=== PATIENT | male | born 1935 | race Caucasian/White ===

== ENCOUNTER 2017-12-20 11:27 | Inpatient (IN) | payer MEDICARE ==
[2017-12-20 12:04] LABS: #Basophils 0.1 thou/uL (0.0-0.2); #Eosinphils 0.1 thou/uL (0.0-0.7); #Lymphocytes 0.9 thou/uL (1.20-3.40); #Monocytes 0.9 thou/uL (0.11-0.59); #Neutrophils 7.1 thou/uL (1.40-6.50); %Basophils 0.6 % (0.0-1.0); %Eosinophils 0.7 % (0.0-10.0); %Lymphocytes 10.2 % (21.0-51.0); %Neutrophils 78.5 % (42.0-75.0); Hemoglobin 16.2 g/dL (14.0-18.0); Mean Corpuscular HGB CONC 33.7 g/dL (32.0-36.0); Mean Corpuscular Hemoglobin 30.8 pg (27.0-31.0); Mean Corpuscular Volume 91.6 fL (78.0-98.0); Mean Platelet Volume 8.7 fL (7.4-10.4); Platelet Count 155 thou/uL (130-400); RBC Distribution Width 13.3 % (11.5-14.5); Red Blood Cell (RBC) Count 5.27 mill/uL (4.70-6.10)
--- NOTE | 2017-12-20 12:11 | RAD ---
PORTABLE CHEST 1 VIEW: Date: 12/20/17 Time: 1115 hours HISTORY: Dyspnea. FINDINGS: Comparison made with exam of 02/13/14. The heart size is borderline. The aorta is tortuous. The lungs are well expanded without focal areas of consolidation, pneumothorax, ankit pulmonary edema, or pleural effusions. There are degenerative c hanges in the shoulder joints. IMPRESSION: No radiographic evidence of acute cardiopulmonary process. POS: [facility]
[2017-12-20 12:25] LABS: ALT (SGPT) 30 U/L (8-55); AST (SGOT) 28 U/L (5-34); Alkaline Phosphatase 97 U/L (40-150); Anion Gap 12 mmol/L (10-20); BUN (Urea Nitrogen) 21 mg/dL (8.4-25.7); Bilirubin, Total 0.9 mg/dL (0.2-1.2); CK (CPK) 302 U/L (30-200); Calc. Creatinine Clearance 0 mL/min (70-130); Calcium 9.1 mg/dL (7.8-10.44); Carbon Dioxide 19 mmol/L (23-31); Chloride 113 mmol/L (98-107); Estimated GFR-MDRD 51; Globulin 2.7 g/dL (2.4-3.5); Glucose 111 mg/dL (83-110); Magnesium 2.2 mg/dL (1.6-2.6); Protein, Total 6.7 g/dL (5.8-8.1); Sodium 140 mmol/L (136-145)
[2017-12-20 12:27] LABS: Troponin I 0.012 ng/mL (< 0.028)
[2017-12-20 12:29] LABS: CKMB 7.9 ng/mL (0-6.6)
[2017-12-20 12:51] LABS: Prothrombin Time 13.4 SEC (12.0-14.7)
[2017-12-20 12:53] LABS: D-Dimer Test 0.9 *mcg/mL (0.27-0.43)
[2017-12-20] MEDS ORDERED: Senokot 8.6 MG TAB PO PRN (16:58)
[2017-12-20] MEDS ORDERED: hydrALAZINE 20 MG/ML VIAL SLOW IVP PRN (16:58)
[2017-12-20] MEDS ORDERED: Diabetic Tussin 200 MG/10 ML UDCUP PO PRN (16:58)
[2017-12-20] MEDS ORDERED: Mag-Al 1200 mg/1200 mg/30 ML UDCUP PO PRN (16:58)
[2017-12-20] MEDS ORDERED: cloNIDine 0.1 MG TAB PO PRN (16:58)
[2017-12-20] MEDS ORDERED: traMADol HCl 50 MG TAB PO PRN (16:58)
[2017-12-20] MEDS ORDERED: Calcium Carbonate 500 MG ChewTAB PO PRN (16:58)
[2017-12-20] MEDS ORDERED: Benzonatate 100 MG CAP PO PRN (16:58)
[2017-12-20] MEDS ORDERED: Ondansetron HCl/PF 4 MG/2 ML Vial IVP PRN (16:58)
[2017-12-20] MEDS ORDERED: Nitroglycerin 0.4 MG TAB (25 Tab Bottle) SL PRN (16:58)
[2017-12-20] MEDS ORDERED: Loratadine 10 MG TAB PO PRN (16:58)
[2017-12-20] MEDS ORDERED: Bisacodyl 5 MG TAB PO PRN (16:58)
[2017-12-20] MEDS ORDERED: Acetaminophen 325 MG TAB PO PRN (16:58)
[2017-12-20] MEDS ORDERED: Enoxaparin Sodium 100 MG/ML SYRINGE ONE (18:19)
[2017-12-20 18:43] LABS: Troponin I 0.041 ng/mL (< 0.028)
--- NOTE | 2017-12-20 19:16 | ULT ---
CAROTID DOPPLER: 12/20/17 Ultrasound doppler study is performed on the extracranial carotid arteries. Color doppler with spectr al analysis of velocity recordings obtained. INDICATIONS: Syncope. Ultrasound images show mild echogenic plaque in both bulbs and proximal ICAs. Velocity recordings are normal bilaterally. Vertebral arteries show antegrade flow. IMPRESSION: 1. Mild echogenic plaques bilaterally. 2. No evidence of significant stenosis. POS: [facility]
--- NOTE | 2017-12-20 20:07 | HP ---
DATE OF ADMISSION: 12/20/2017 PRIMARY CARE PHYSICIAN: Dr. Kwok at [facility]. CHIEF COMPLAINT: Dizziness and near passing out. HISTORY OF PRESENT ILLNESS: Mr. Luna is a very pleasant 82-year-old male who is actually very healt hy, who presented to the emergency room with above-mentioned complaint. He has past medical history of hypertension and dyslipidemia. History is mainly obtained by the patient himself and electronic m edical records have been reviewed. Case has been discussed with admitting ER physician. Mr. Luna reports that he was at [employer] function this morning and suddenly he started to feel somewhat dizzy. He sat down; however, the dizziness did not go away. He describes it as a sensatio n when his ears are full of wax and they feel full. He denies any fever or chills. He denies any pa in in the ear or any ear discharge. He denies any recent illnesses. With these symptoms, he did not have any chest discomfort, tightness, heaviness. He denies any shortness of breath, diaphoresis, ar m or jaw pain or claudication. When the symptoms did not get any better, he decided to present to [facility] emergency room. Reportedly, his oxygen saturations were 85% on room air and initial BP was 95/50. This was for the EMS personnel. Upon presentation to the emergency room, his blood pressure was 127 /87, pulse of 99, saturating 92% on 2 liters oxygen. Initial workup included a 12-lead EKG, which wa s read as accelerated junctional rhythm. EKG was repeated, which showed prolonged NH interval and fi rst-degree AV block. Chest x-ray was unremarkable. His blood work initially had a troponin of 0.012 , which went up to 0.050. His CK-MB is elevated to 7.9, but his creatinine kinase is also mildly dominik vated to 302. His creatinine is 1.34 with unknown baseline. He had neutrophilia without any elevati on of the WBC count. His D-dimer is mildly elevated to 0.90. He was given aspirin in the emergency room and is now being admitted for further workup for near syncope, possible "unstable angina" as per the ER physician. With the bump in the troponin, he has also been given a dose of Lovenox. PAST MEDICAL HISTORY: 1. History of lumbar spinal stenosis, status post surgery. 2. Hypertension. 3. Dyslipidemia. 4. History of patellar fracture. 5. History of quadriceps tendon rupture with repair. PAST SURGICAL HISTORY: 1. Lumbar laminectomy. 2. Quadriceps tendon repair. CURRENT MEDICATIONS: Unknown, the patient does not remember, but he does say that he takes half of t he cholesterol medication and the blood pressure medication. ALLERGIES: No known medication allergies. FAMILY HISTORY: Multiple family members with coronary artery disease including both of his parents a nd multiple of his siblings. He also report that cancer runs in his brother and sisters, but he does not recall what type. SOCIAL HISTORY: He is a and lives in [place]. He is very independent. His 2 daughters julianne e in [place]. Ms. Restrepo would be his spokesperson if he is not able to make decisions. No history of drug, tobacco or alcohol abuse. REVIEW OF SYSTEMS: A 12-point review of systems is negative except for those mentioned in the histor y and physical. Constitutional: Weight loss or gain, ability to conduct usual activities. Skin: R carmen, itching. Eyes: Double vision, pain. ENT/Mouth: Nose bleeding, neck stiffness, pain, tenderne ss. Cardiovascular: Palpitations, dyspnea on exertion, orthopnea. Respiratory: Shortness of breat h, wheezing, cough, hemoptysis, fever or night sweats. Gastrointestinal: Poor appetite, abdominal p ain, heartburn, nausea, vomiting, constipation, or diarrhea. Genitourinary: Urgency, frequency, dys uria, nocturia. Musculoskeletal: Pain, swelling. Neurologic/Psychiatric: Anxiety, depression. Al lergy/Immunologic: Skin rash, bleeding tendency. LABORATORY DATA: CBC shows neutrophils at 78%, otherwise unremarkable. D-dimer 0.90. Serum roundhouse supervisor ry showed creatinine of 1.34, bicarbonate 19, chloride 113, blood sugar 111, creatinine kinase 302. CK-MB 7.9. Initial troponin 0.012, then repeat troponin 0.050, and then 0.041. BNP is normal. Ches t x-ray by my review has no evidence to suggest any pulmonary vascular congestion, edema or infiltrat e. Borderline heart size is noticed. Twelve-lead EKG by my review shows prolonged NH interval and f irst-degree AV block. IMPRESSION AND PLAN: 1. Near syncope. Possible etiology can be dehydration as evidenced by his acute renal insufficiency and mild rhabdomyolysis; however, cardiac pathology cannot be ruled out. He had a cardiac catheteri zation done by Dr. Brandon in 2012, which was essentially unremarkable. At this time, with up trend ing troponin, we will give him full dose aspirin and he has also received a dose of Lovenox in the ER at 1 mg/kg. He will be admitted to telemetry and we will obtain an echocardiogram and consult Cardi ology in the morning especially with a possible accelerated junctional rhythm upon presentation. The possibility of pulmonary embolism is less likely even though his D-dimer is elevated. He is not hyp oxic and quite stable and asymptomatic at the time of my examination. We will also obtain a carotid Doppler ultrasound to rule out posterior cerebral circulation issues. 2. Hypertension. Resume home medications once confirmed and meanwhile add p.r.n. antihypertensives. 3. Dyslipidemia. Resume home medications when confirmed. 4. Code status: FULL CODE, discussed with the patient. 5. Deep venous thrombosis and gastrointestinal prophylaxis. DISPOSITION: Mr. Luna is being admitted for near syncope, elevated cardiac enzymes and arrhythmia. Further management will depend upon his clinical course. Estimated length of stay at this time is a t least 2-3 midnights.
[2017-12-20] MEDS: Sodium Chloride 0.9% 1,000 ML IV SCH (21:18)
[2017-12-20] MEDS: Famotidine 20 MG TAB PO SCH (21:18)
[2017-12-20 21:38] LABS: Troponin I 0.041 ng/mL (< 0.028)
[2017-12-20 22:14] VITALS: BMI 28.5
[2017-12-21] MEDS ORDERED: Atropine Sulfate 1 mg/1 ml Vial IVP PRN (01:19)
--- NOTE | 2017-12-21 01:23 | PDOC.EVN ---
Event Note - Event Note Event Note: paged by rn pt had sinus pauses and bradycardia in the 40's while sleeping when awake findings disappear, we will place order for atropine to be kept at bedside , to be given only for symptomatic bradycardia and call
[2017-12-21 05:58] LABS: #Basophils 0.1 thou/uL (0.0-0.2); #Eosinphils 0.2 thou/uL (0.0-0.7); #Lymphocytes 1.2 thou/uL (1.20-3.40); #Monocytes 0.8 thou/uL (0.11-0.59); #Neutrophils 3.6 thou/uL (1.40-6.50); %Basophils 1.2 % (0.0-1.0); %Eosinophils 3.9 % (0.0-10.0); %Monocytes 12.9 % (0.0-10.0); Hemoglobin 14.6 g/dL (14.0-18.0); Mean Corpuscular HGB CONC 33.2 g/dL (32.0-36.0); Mean Corpuscular Hemoglobin 30.7 pg (27.0-31.0); Mean Corpuscular Volume 92.3 fL (78.0-98.0); Mean Platelet Volume 8.7 fL (7.4-10.4); Platelet Count 158 thou/uL (130-400); RBC Distribution Width 13.3 % (11.5-14.5); Red Blood Cell (RBC) Count 4.77 mill/uL (4.70-6.10); White Blood Cell (WBC) Count 5.8 thou/uL (4.8-10.8)
[2017-12-21 06:02] LABS: Anion Gap 8 mmol/L (10-20); BUN (Urea Nitrogen) 21 mg/dL (8.4-25.7); Calc. Creatinine Clearance 67 mL/min (70-130); Carbon Dioxide 26 mmol/L (23-31); Chloride 112 mmol/L (98-107); Estimated GFR-MDRD 63; Glucose 86 mg/dL (83-110); Potassium 5.1 mmol/L (3.5-5.1); Sodium 141 mmol/L (136-145)
[2017-12-21] MEDS: Famotidine 20 MG TAB PO SCH ×2 (08:49→20:05)
[2017-12-21] MEDS: Enoxaparin Sodium 40 MG/0.4 ML SYRINGE SC SCH (08:49)
[2017-12-21] MEDS ORDERED: Aspirin 325 mg Enteric Coated Tablet PO SCH (09:00)
[2017-12-21 09:25] LABS: Bilirubin Negative (Negative); Blood, Urine Negative (Negative); Clarity CLEAR (Clear); Glucose, Urine (Dipstick) Negative (Negative); Leukocyte Negative (Negative); Nitrite Negative (Negative); Protein, Urine (Dipstick) Negative (Neg-Trace); Specific Gravity, Urine 1.024 (1.002-1.036); pH, Urine 5.5 (5.0-9.0)
[2017-12-21] MEDS ORDERED: Atorvastatin Calcium 40 MG TAB PO SCH (10:00)
[2017-12-21] MEDS ORDERED: Lisinopril 10 MG TAB PO SCH (10:00)
--- NOTE | 2017-12-21 10:28 | CT ---
CTA CHEST WITH CONTRAST: HISTORY: Hypoxia with cardiac arrhythmia and dizziness. COMPARISON: None. TECHNIQUE: Multiple contiguous axial images were obtained in a CTA of the chest with contrast, per pulmonary emb olism protocol, and 3D oblique MIP reformats and direct coronal reformats were performed. FINDINGS: The pulmonary arteries are well opacified without filling defects to suggest pulmonary emboli. The h eart is at the upper limits of normal in size without focal cardiac abnormality. Calcifications are seen in the coronary arteries. No hilar or mediastinal lymphadenopathy is present. No focal infiltrates are seen in the lungs. No pneumothorax or pleural effusion is seen. No suspici ous pulmonary nodules are present. Degenerative changes are seen in the spine. There is a hypodensity in the right kidney, on the infer ior-most slice, which may represent a cyst. The other visualized subdiaphragmatic structures are unr emarkable. The chest wall soft tissues are unremarkable. IMPRESSION: No evidence of pulmonary thromboembolism. POS: [facility]
[2017-12-21] MEDS: Sodium Chloride 0.9% 1,000 ML IV SCH ×3 (11:26→20:05)
[2017-12-21] MEDS ORDERED: ISOVUE-370 76%-LOCM 1 ML ONE (12:53)
[2017-12-21] MEDS ORDERED: Iopamidol 370 76% 50 ML VIAL FS ONE (13:02)
[2017-12-21 14:22] LABS: #Basophils 0.1 thou/uL (0.0-0.2); #Eosinphils 0.2 thou/uL (0.0-0.7); #Lymphocytes 1.3 thou/uL (1.20-3.40); #Monocytes 0.6 thou/uL (0.11-0.59); #Neutrophils 3.1 thou/uL (1.40-6.50); %Eosinophils 3.6 % (0.0-10.0); %Lymphocytes 25.4 % (21.0-51.0); %Monocytes 11.9 % (0.0-10.0); %Neutrophils 58.2 % (42.0-75.0); Hemoglobin 15.8 g/dL (14.0-18.0); Mean Corpuscular Hemoglobin 30.7 pg (27.0-31.0); Mean Corpuscular Volume 93.1 fL (78.0-98.0); Mean Platelet Volume 8.6 fL (7.4-10.4); Platelet Count 160 thou/uL (130-400); RBC Distribution Width 13.3 % (11.5-14.5); Red Blood Cell (RBC) Count 5.15 mill/uL (4.70-6.10); White Blood Cell (WBC) Count 5.3 thou/uL (4.8-10.8)
[2017-12-21] MEDS ORDERED: CEFAZOLIN/Water 2 GM/20 ML SYRINGE SLOW IVP SCH (14:30)
[2017-12-21 14:32] LABS: PTT 36.5 SEC (22.9-36.1); Prothrombin Time 13.2 SEC (12.0-14.7)
--- NOTE | 2017-12-21 14:33 | PDOC.PN ---
- Subjective Encounter Start Date: 12/21/17 Encounter Start Time: 14:31 Subjective: feels well. -: reports of sinus pauses and bradycardia noted -: pt asymptomatic for those.no dizziness/palpitations - Objective MAR Reviewed: Yes Vital Signs & Weight: Vital Signs (12 hours) Temp Pulse Resp BP Pulse Ox 12/21/17 11:27 97.5 F L 49 L 17 168/84 H 95 12/21/17 08:00 97.8 F 54 L 18 154/70 H 95 12/21/17 04:00 98.3 F 52 L 15 149/72 H 93 L Weight Weight 211 lb 11.2 oz I&O: 12/20/17 12/21/17 12/22/17 06:59 06:59 06:59 Intake Total 780 480 Output Total 0 650 Balance 780 -170 Result Diagrams: 12/21/17 14:16 12/21/17 05:00 Additional Labs: Laboratory Tests 12/20/17 12/20/17 12/20/17 11:54 13:58 18:06 Troponin I 0.012 0.050 H 0.041 H 12/20/17 20:59 Troponin I 0.041 H labs reviewed Phys Exam - Physical Examination Constitutional: NAD HEENT: PERRLA, moist MMs, sclera anicteric, oral pharynx no lesions Neck: no nodes, no JVD, supple, full ROM Respiratory: no wheezing, no rales, no rhonchi, clear to auscultation bilateral Cardiovascular: RRR, no significant murmur Gastrointestinal: soft, non-tender, no distention, positive bowel sounds Musculoskeletal: no edema, pulses present Neurological: non-focal, normal sensation, moves all 4 limbs Psychiatric: normal affect, A&O x 3 Skin: no rash Dx/Plan (1) Sinus bradycardia Code(s): R00.1 - BRADYCARDIA, UNSPECIFIED Status: Acute (2) Syncope and collapse Code(s): R55 - SYNCOPE AND COLLAPSE Status: Acute Comment: jacob secd to sinus bradycardia (3) NSTEMI (non-ST elevated myocardial infarction) Code(s): I21.4 - NON-ST ELEVATION (NSTEMI) MYOCARDIAL INFARCTION Status: Acute Comment: jacob demand ischemia (4) HTN (hypertension) Code(s): I10 - ESSENTIAL (PRIMARY) HYPERTENSION Status: Acute - Plan out of bed/ambulate, DVT proph w/SCDs discussed w cardiology-PPM today for symtpomatic bradycardia -: CTA negative for PE. cont IVF as received contrast -: no evidence of Pulm edema. -: hemodynamically stable. restart home meds.NPO -: am labs * . Review of Systems - Review of Systems Constitutional: negative: fever, chills, sweats, weakness, malaise, other ENT: negative: Ear Pain, Ear Discharge, Nose Pain, Nose Discharge, Nose Congestion, Mouth Pain, Mouth Swelling, Throat Pain, Throat Swelling, Other Respiratory: negative: Cough, Dry, Shortness of Breath, Hemoptysis, SOB with Excertion, Pleuritic Pain, Sputum, Wheezing Cardiovascular: negative: chest pain, palpitations, orthopnea, paroxysmal nocturnal dyspnea, edema, light headedness, other Gastrointestinal: negative: Nausea, Vomiting, Abdominal Pain, Diarrhea, Constipation, Melena, Hematochezia, Other Genitourinary: negative: Dysuria, Frequency, Incontinence, Hematuria, Retention , Other Skin: negative: Rash, Lesions, Hemanth, Bruising, Other Neurological: negative: Weakness, Numbness, Incoordination, Change in Speech, Confusion, Seizures, Other - Medications/Allergies Allergies/Adverse Reactions: Allergies Allergy/AdvReac Type Severity Reaction Status Date / Time No Known Allergies Allergy Verified 02/13/14 19:39 Medications: Current Medications Acetaminophen (Tylenol) 650 mg PO Q4H PRN PRN Reason: Headache/Fever or Pain Al Hydroxide/Mg Hydroxide (Maalox) 30 ml PO Q6H PRN PRN Reason: Heartburn or Indigestion Aspirin (Aspirin Chewable) 81 mg PO DAILY [facility] Atorvastatin Calcium (Lipitor) 40 mg PO DAILY [facility] Atropine Sulfate (Atropine) 0.5 mg IVP ONE PRN PRN Reason: symptomatic bradycardia Stop: 12/24/17 01:20 Benzonatate (Tessalon) 100 mg PO Q4H PRN PRN Reason: Cough Bisacodyl (Dulcolax) 10 mg PO DAILYPRN PRN PRN Reason: Constipation Calcium Carbonate (Tums) 1,000 mg PO Q4H PRN PRN Reason: Heartburn or Indigestion Cefazolin Sodium (Ancef) 2 gm SLOW IVP WILLCALL [facility] Stop: 07/06/18 14:31 Clonidine (Catapres) 0.1 mg PO Q4H PRN PRN Reason: Systolic BP > 160 Enoxaparin Sodium (Lovenox) 40 mg SC 0900 [facility] Last Admin: 12/21/17 08:49 Dose: 40 mg Famotidine (Pepcid) 20 mg PO BID [facility] Last Admin: 12/21/17 08:49 Dose: 20 mg Guaifenesin (Robitussin Sf) 200 mg PO Q4H PRN PRN Reason: Cough Hydralazine HCl (Apresoline) 10 mg SLOW IVP Q4H PRN PRN Reason: Systolic BP > 170 Sodium Chloride (Normal Saline 0.9%) 1,000 mls @ 50 mls/hr IV .Q20H [facility] Last Admin: 12/21/17 11:26 Dose: 1,000 mls Lisinopril (Zestril) 10 mg PO DAILY [facility] Loratadine (Claritin) 10 mg PO DAILYPRN PRN PRN Reason: Sinus Symptoms Nitroglycerin (Nitrostat) 0.4 mg SL Q5MIN PRN PRN Reason: Chest Pain Ondansetron HCl (Zofran) 4 mg IVP Q6H PRN PRN Reason: Nausea/Vomiting Senna (Senokot) 2 tab PO HSPRN PRN PRN Reason: Constipation Tramadol HCl (Ultram) 50 mg PO Q4H PRN PRN Reason: Moderate Pain (4-6)
[2017-12-21 14:41] LABS: Anion Gap 12 mmol/L (10-20); BUN (Urea Nitrogen) 18 mg/dL (8.4-25.7); Calc. Creatinine Clearance 74 mL/min (70-130); Calcium 9.5 mg/dL (7.8-10.44); Carbon Dioxide 23 mmol/L (23-31); Chloride 108 mmol/L (98-107); Estimated GFR-MDRD 70; Glucose 90 mg/dL (83-110); Potassium 4.1 mmol/L (3.5-5.1); Sodium 139 mmol/L (136-145)
[2017-12-21] MEDS ORDERED: Lidocaine 1% (PF) 30 ML VIAL ONE (16:40)
[2017-12-21] MEDS ORDERED: CEFAZOLIN/Water 2 GM/20 ML SYRINGE ONE (16:40)
[2017-12-21] MEDS ORDERED: CEFAZOLIN 1 GM VIAL ONE (16:40)
--- NOTE | 2017-12-21 16:46 | CON ---
DATE OF CONSULTATION: 12/21/2017 HISTORY OF PRESENT ILLNESS: The patient is an 82-year-old gentleman who presents with dizziness and weakness, and was admitted for further evaluation. The patient was seen initially in 12/2012, he und erwent a preoperative evaluation and was found to have a normal stress test. He subsequently underwe nt a cardiac catheterization and found to have a mild decrease in left ventricular ejection fraction 45%-50%. Though the patient has had mild coronary artery disease with only 20% RCA lesion, the patie nt has done remarkably well until the past few months when he felt increasing dizziness. The patient states he has been lightheaded and nearly lost consciousness. The patient denies having any chest d iscomfort. The patient denies having any PND or orthopnea. PAST MEDICAL HISTORY: 1. Significant for lumbar stenosis. 2. Hypertension. 3. Mild coronary artery disease. 4. Dyslipidemia. PAST SURGICAL HISTORY: He has had laminectomy and surgery for arterial rupture in his right quadrice ps. ALLERGIES: None. MEDICATIONS: Include lisinopril 10 daily, Lipitor 40 daily and aspirin 81 daily. ALLERGIES: No known drug allergies. FAMILY HISTORY: Strong family history of coronary artery disease. SOCIAL HISTORY: Nonsmoker. REVIEW OF SYSTEMS: Ten-point system otherwise unremarkable. PHYSICAL EXAMINATION: GENERAL: Well-developed gentleman in no acute distress. VITAL SIGNS: Blood pressure 168/94. NECK: No jugular distention. LUNGS: Clear to auscultation. HEART: Regular rate and rhythm, normal S1, S2, no murmurs. ABDOMEN: Nondistended. EXTREMITIES: Showed no edema. VASCULAR: Radial pulses 2+. NEUROLOGIC: Nonfocal. LABORATORY DATA AND IMAGING DATA: Sodium 141, potassium 5.1, chloride 112, bicarbonate 26, BUN 21, c reatinine 1.1. His troponin was 0.041. BNP was 77. EKG reveals normal sinus rhythm, first degree A V block, right bundle branch block, left anterior fascicular block. case monitor revealed marke d sinus arrhythmia with prolonged pauses up to 3 seconds. IMPRESSION: 1. Symptomatic bradycardia. 2. Sinus marcos dysfunction. 3. Hypertension. 4. History of mild coronary artery disease. DISCUSSION AND PLAN: This gentleman presents with near syncope. It is recommended that patient proc eed with pacemaker placement. We will follow this patient with you through his hospitalization.
[2017-12-21] MEDS ORDERED: Fentanyl 100 MCG/2 ML VIAL ONE (17:34)
[2017-12-21] MEDS ORDERED: Midazolam HCl 2 mg/2 ml Vial ONE (17:34)
[2017-12-21] MEDS ORDERED: Cephalexin 250 MG CAP PO SCH (18:30)
[2017-12-21] MEDS ORDERED: Acetaminophen/Codeine 30-300mg Tablet PO PRN ×2 (18:30)
[2017-12-22] MEDS: Cephalexin 250 MG CAP PO SCH ×3 (00:33→14:14)
--- NOTE | 2017-12-22 02:13 | CON ---
DATE OF CONSULTATION: 12/21/2017 ELECTROPHYSIOLOGY CONSULTATION REPORT REFERRING PHYSICIAN: Dr. Brandon. I am seeing Mr. Luna at our [facility] telemetry floor as an electrophysiology outside solar sales consultant. His problems are: 1. Near syncopal spell. 2. 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 3. Normal LVEF at 50% to 55%, moderate mitral regurgitation, mild tricuspid regurgitation on echo from 12/21/2017. 4. Risk factors including hypertension and dyslipidemia. 5. History of lumbar spinal stenosis, status post surgery. ALLERGIES: None noted. MEDICATIONS: At home lisinopril 10 mg daily, Lipitor 40 mg daily, aspirin 81 daily. SUBJECTIVE: Mr. Luna has here admitted after a near syncopal spell. He has been experiencing some dizziness, lightheadedness even before, but not this severe. He also had some mild dyspnea at times and fatigue. He came to ER, found to have abnormal EKG as dictated above. His blood pressure is also borderline 95/50. Currently, he is feeling well, sitting up. Does not get dizzy or pass out in his position. Denies PND or orthopnea. No fever, chills, or cough. No stroke-like symptoms, no neurological deficits. REVIEW OF SYSTEMS: Rest of twelve-point system otherwise unremarkable. PAST MEDICAL HISTORY: As above. He also has history of patellar fracture and quadriceps tendon rupture with repair, lumbar laminectomy. SOCIAL HISTORY: Patient is a , lives in [facility], two daughters lives in [place]. Denies smoking, ETOH, or drug abuse. FAMILY HISTORY: He has not contributory. OBJECTIVE: VITAL SIGNS: Blood pressure 146/91, heart rate 63, respiratory rate 17, temperature 98 degrees Fahrenheit. GENERAL: He is alert and oriented man in no apparent distress. NECK: Supple. Jugular veins not distended. CHEST: Coarse without crackles. CARDIOVASCULAR: Heart sounds are regular to rate and rhythm. No murmur or gallop. ABDOMEN: Benign. Bowel sounds positive. EXTREMITIES: Lower extremities without edema, clubbing, or cyanosis. Pulses are adequate. NEUROLOGIC: Patient nonfocal. MUSCULOSKELETAL: No joint swelling or deformities. SKIN: Without rash. 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 Episodic Mobitz type 2 second-degree AV block is seen. Occasional non-conducted PACs and even sinus bradycardia at times, further worsening the rate. He had over 3-second pauses on telemetry strips. LABORATORY DATA: White count 5.3, hemoglobin 15.8, platelet count is 160. Sodium 139, potassium 4.1, BUN 18, creatinine 1.01. Troponin I was 0.05, 0.04, and 0.04 consecutively. ASSESSMENT AND PLAN: Ms. Luna is a pleasant 82-year-old man with prior history of no significant heart disease who presenting with a near syncopal probably spell and his EKG is markedly abnormal. He has evidence of major AV conduction problem with Mobitz type 2 second-degree block, which is likely points to the intfra HiS conduction system, which in turn has a poor prognosis. Also has some sinus bradycardia, possible sinus node disease also present. Hence a dual-chamber pacemaker placement is highly warranted. I explained the procedure to him, the rationale and risks also detailed including chance of infection, bleeding, pneumothorax, tamponade, lead dislodgement, device malfunctions in a future. He is willing to proceed, we will schedule him in near date. JUAN DAVID
[2017-12-22 07:48] VITALS: BP 154/76; TEMP 98.1
[2017-12-22] MEDS ORDERED: Atorvastatin Calcium 40 MG TAB PO SCH (09:00)
[2017-12-22] MEDS ORDERED: Lisinopril 10 MG TAB PO SCH (09:00)
--- NOTE | 2017-12-22 09:33 | RAD ---
FRONTAL VIEW CHEST: COMPARISON: 12/20/17. INDICATION: Status post pacemaker placement. FINDINGS: There is a dual-lead left subclavian approach cardiac pacing device with leads overlying the expected region of right atrium and right ventricle. No significant postprocedure pneumothorax is seen. Mil d interstitial prominence of the lower lung zones is present bilaterally. Cardiomediastinal silhouet te is similar in size. IMPRESSION: Status post left subclavian approach cardiac pacing device placement, without a significant postproce dure pneumothorax. POS: [facility]
[2017-12-22] MEDS: Enoxaparin Sodium 40 MG/0.4 ML SYRINGE SC SCH (10:00)
[2017-12-22] MEDS: Famotidine 20 MG TAB PO SCH (10:01)
--- NOTE | 2017-12-22 14:35 | PQF ---
CLINICAL DOCUMENTATION IMPROVEMENT CLARIFICATION FORM: ICD-10 Updated PLEASE DO AN ADDENDUM TO THE PROGRESS NOTE WITH ANY DOCUMENTATION UPDATES OR ADDITIONS AND CARRY THROUGH TO DC SUMMARY. THANK YOU. DATE: 12/22/17 ATTN: Dr. Travis Please exercise your independent, professional judgment in responding to the clarification form. Clinical indicators are provided on the bottom of this form for your review Please check appropriate box(s): AMI TYPE: [ ] NSTEMI [ ] AMI Type II [ ] Demand ischemia [ ] Other diagnosis [ ] Unable to determine In addition, please specify: Present on Admission (POA): [ ] Yes [ ] No [ ] Unable to determine CLINICAL INDICATORS - SIGNS / SYMPTOMS / LABS H&P 12/20: CK-MB 7.9. INITIAL TROPONIN 0.012, REPEAT TROPONIN 0.050, & THEN 0.041 PN 12/21: NSTEMI. ACUTE. LIKELY DEMAND ISCHEMIA. RISKS: H&P 12/20: NEAR SYNCOPE. HYPERTENSION. DYSLIPIDEMIA CARDIOLOGY CONSULT 12/21: HX OF MILD CAD. TREATMENT: CARDIOLOGY CONSULT CPOE 12/20: ASPIRIN 325 MG PO DAILY. DC 'D 12/21 CPOE 12/20: LOVENOX 40 MG SC Thank you, Kaye (This form is maintained as a part of the permanent medical record) 2014 [employer]. All Rights Reserved Kaye Pompa, RN, BSN [email or web address] Office: [phone] [facility]
--- NOTE | 2017-12-22 17:01 | EKG ---
Test Reason : Blood Pressure : / mmHG Vent. Rate : 048 BPM Atrial Rate : 048 BPM P-R Int : 366 ms QRS Dur : 158 ms QT Int : 482 ms P-R-T Axes : 027 -64 003 degrees QTc Int : 430 ms Marked sinus bradycardia with marked sinus arrhythmia with 1st degree A-V block Right bundle branch block Left anterior fascicular block Bifascicular block Abnormal ECG When compared with ECG of 29-NOV-1996 12:58, IN interval has increased Vent. rate has decreased BY 23 BPM (RBBB and left anterior fascicular block) is now Present Confirmed by DR. Yarelis MCGILL (3) on 12/22/2017 5:01:05 PM Referred By: Confirmed By:DR. Yarelis MCGILL
--- NOTE | 2017-12-22 20:58 | DIS ---
DATE OF ADMISSION: 12/20/2017 DATE OF DISCHARGE: 12/22/2017 CONDITION AT THE TIME OF DISCHARGE: Stable and improved. DISCHARGE DIAGNOSES: 1. Near syncope secondary to cardiac arrhythmias. 2. 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 4. Hypertension. 5. Dyslipidemia. 6. Demand ischemia from arrhythmia. DISCHARGE MEDICATIONS: Remain the same as admission medications; lisinopril 10 mg daily, atorvastati n 40 mg daily, aspirin 81 mg daily. New medication Keflex 500 mg p.o. 6 hours for 5 more days by [facility]. PROCEDURES DONE IN THE HOSPITAL: 1. Placement of a dual chamber pacemaker by Dr. Gonzalez. 2. CT angio of the thorax which shows mild pulmonary vascular congestion, but no PE. 3. Carotid Doppler ultrasound, which is negative for any hemodynamically significant stenosis. 4. Transthoracic echocardiogram, which shows preserved ejection fraction of 55% without any valvular abnormality. No diastolic dysfunction seen either. CONSULTATIONS INHOUSE: 1. Cardiology, Dr. Brandon. 2. Electrophysiology, Dr. Gonzalez. PRIMARY CARE PHYSICIAN: Dr. Codi Em. HISTORY OF PRESENTING ILLNESS: Mr. Luna is a very pleasant 82-year-old male with past medical histo ry of hypertension and dyslipidemia who is very active and independent, presented to the emergency ro om after he has suffered a near syncopal episode. EKG in the emergency room was consistent with AV b lock. He was otherwise hemodynamically stable. He had mild elevation of his troponin at 0.012 and t hen 0.050. He has mild elevation of CPK at 302 and creatinine 1.34. He was admitted for further stefania luation and care. Please see admission history and physical for further detail. He was otherwise he modynamically stable. HOSPITAL COURSE: Given his presentation, he underwent carotid Doppler ultrasound to rule out posteri or cerebral circulation problems. This was negative. He underwent a CT angio as he was somewhat hyp oxic initially. His D-dimer was slightly elevated as well. CT angio was negative for any evidence o f pulmonary embolism. Echocardiogram was ordered and Cardiology was consulted. He was found to have significant trifascicular block at baseline with AV block, second degree type 2. He underwent succe ssful placement of a dual chamber pacemaker by Dr. Gonzalez in 12/21/2017. He was seen and examined prior to discharge this morning and is eager to go home and is at baseline. He has been cleared by Dr. Brandon and Dr. Gonzalez for discharge as well with outpatient followup. e plan is for him to undergo a stress test in 1 month. He was seen and examined prior to discharge. PHYSICAL EXAMINATION: VITAL SIGNS: This morning, temperature 98.1, heart rate 60, respirations 18, saturating 90% on room air, blood pressure 154/76. GENERAL: No acute distress, awake, alert, oriented x3. He is sitting in the chair in his street [employer], ready to go home. CHEST: Clear to auscultation without any wheezing, rales or rhonchi. Rhythm is regular without any murmur, rubs or gallop. There is a small bruise on the side of the pacemaker, but the incision looks clean without any dehiscence or discharge. LABORATORY DATA: Troponin 0.012, then 0.050, then 0.041, then 0.041. Serum creatinine at the time o f discharge is 1.01. The patient is instructed to follow with primary care physician 1 week ago though he is somewhat hesi tant to do that, but he is encouraged to do so. He is encouraged to monitor his blood pressure at [facility] as well. Total time spent in the discharge of this patient 32 minutes.
--- NOTE | 2017-12-23 14:24 | EKG ---
Test Reason : Blood Pressure : / mmHG Vent. Rate : 067 BPM Atrial Rate : 067 BPM P-R Int : 394 ms QRS Dur : 154 ms QT Int : 438 ms P-R-T Axes : 056 -64 026 degrees QTc Int : 462 ms Sinus rhythm with 1st degree A-V block Possible Left atrial enlargement Right bundle branch block Left anterior fascicular block Bifascicular block Abnormal ECG Confirmed by MARLENY FRANCIS ([id number]), editorial project manager TRIPP AGUILERA ([id number]) on 12/23/2017 2:23:51 PM Referred By: Confirmed By:MARLENY FRANCIS
== END 2017-12-22 14:15 | disposition home or self-care (01) | DRG 243 ==
LOC: ERS 11:27 → 2NO 16:58
PROVIDERS: ADMIT Internal Medicine; ATTEND Internal Medicine
PROC: 0JH606Z Insertion of Pacemaker, Dual Chamber into Chest Subcutaneous Tissue and Fascia, Open Approach (ICD-10-PCS; principal; 2017-12-21)
PROC: 02H63JZ Insertion of Pacemaker Lead into Right Atrium, Percutaneous Approach (ICD-10-PCS; 2017-12-21)
PROC: 02HK3JZ Insertion of Pacemaker Lead into Right Ventricle, Percutaneous Approach (ICD-10-PCS; 2017-12-21)
DX: I44.1 Atrioventricular block, second degree (principal); I24.8 Other forms of acute ischemic heart disease; M62.82 Rhabdomyolysis; I45.3 Trifascicular block; E78.5 Hyperlipidemia, unspecified; I10 Essential (primary) hypertension; Z79.82 Long term (current) use of aspirin; Z98.1 Arthrodesis status; I25.10 Atherosclerotic heart disease of native coronary artery without angina pectoris
CPT/HCPCS: 33208; 36005; 36415; 71045; 71275; 75820; 80048; 80053; 81003; 82553; 83735; 83880; 84484; 85025; 85379; 85610; 85730; 93005; 93010; 93306; 93880; 94760; 96372; 99152; 99153; C1785; C1898; J0690; J1650; J2001; J2250; J3010; J3490

== ENCOUNTER 2019-02-14 10:48 | Day surgery (SDC) | payer MEDICARE ==
[2019-02-13 12:04] VITALS: BMI 27.1
[~2019-02-14 10:48] MED LIST: Lidocaine 1% PF 5 ML VIAL ONE; Ondansetron PF 4 MG/2 ML Vial ONE; PHENYLEPHRINE-NS 100 MCG/ML 10 ML SYRINGE ONE; PROPOFOL 200 MG/20 ML VIAL ONE; ePHEDrine 50 MG/ML VIAL ONE
[2019-02-14 13:22] LABS: Hemoglobin 16.1 g/dL (14.0-18.0)
[2019-02-14] MEDS ORDERED: Lidocaine 1% w/Epinephrine 1:100K 20 ML VIAL ONE ×2 (13:31→15:16)
[2019-02-14] MEDS ORDERED: Bacitracin Zinc Ointment 30 gm TUBE ONE ×2 (13:31→15:16)
[2019-02-14 13:45] LABS: Anion Gap 14 mmol/L (10-20); BUN (Urea Nitrogen) 24 mg/dL (8.4-25.7); Calc. Creatinine Clearance 55 mL/min (70-130); Calcium 9.5 mg/dL (7.8-10.44); Carbon Dioxide 23 mmol/L (23-31); Chloride 106 mmol/L (98-107); Estimated GFR-MDRD 54; Glucose 98 mg/dL (83-110); Sodium 139 mmol/L (136-145)
[2019-02-14] MEDS ORDERED: Famotidine/PF 20 mg/2ml Vial ONE (15:45)
[2019-02-14] MEDS ORDERED: Fentanyl 100 MCG/2 ML VIAL ONE (15:45)
--- NOTE | 2019-02-15 10:00 | OP ---
DATE OF PROCEDURE: 02/14/2019 PREOPERATIVE DIAGNOSIS: Basal cell carcinoma of his left nasal bridge, measuring 3 cm. POSTOPERATIVE DIAGNOSIS: Basal cell carcinoma of his left nasal bridge, measuring 3 cm. PROCEDURE PERFORMED: 1. Excision of malignant nasal lesion measuring 3 cm. 2. [place] of split-thickness skin graft from left shoulder measuring 3 cm and also a split-thickness skin graft reconstruction post-excisional defect measuring 3 cm. PROCEDURE IN DETAIL: The patient was identified, brought to the operating room, placed on the operating room table in supine position. General laryngeal mask anesthesia was obtained. The patient was positioned for surgery. The area of both the donor site and the site of the excision was prepped and draped in sterile fashion. The areas were infiltrated with 1% lidocaine to 1:100,000 epinephrine in the nasal bridge area as well as the left shoulder. We initially under microscopic visualization, delineated the margin of the lesion and and delineated that with a marking pen. A similar defect was then measured roughly 3 cm. We then recreated the similar marking on the left shoulder from which the graft would be harvested. We then turned our attention to the nose and using short technique, excised the mass down to the subcutaneous tissues and sent it for histologic evaluation and frozen section. We obtained hemostasis with electrocautery. We then with a 10-blade obtained a split-thickness skin graft in a freehand fashion. This was then placed into the defect and suture secured to the margin of the defect with 6-0 rapidly absorbing gut. We then placed a Xeroform dressing in the defect and placed a cotton ball with mineral oil in the center of it. We then used bolster sutures around the bolster stay sutures and secured that in place with the pressure was applied against gravity. We then turned our attention to where the harvest site was. The dermis was removed using down to the subcutaneous tissues, and the [place] of which was closed in two layers with Monocryl for the deep layers and Prolene for the skin. The patient was awakened and taken to recovery room in stable condition. Job ID: [id number]
--- NOTE | 2019-02-20 05:45 | PQF ---
[facility] POST DISCHARGE CLINICAL DOCUMENTATION IMPROVEMENT CLARIFICATION FORM l Todays Date: 02/20/19 l Patients Name KUN ANGELES l l Admit Date 02/14/19 l Disch Date 02/14/19 Mines Safety Engineer Name Maynor Lin Email: [email or web address] Cell: [phone] To be completed by Mines Safety Engineer: Present Clinical Indicators - Signs / Symptoms Results and Location in Medical Record [ ] Documentation of: [ ] [ ] Documentation of: [ ] [ ] Documentation of: [ ] [ ] Documentation of: [ ] [ ] Risks [ ] [ ] [ ] Treatment [ ] Basal Cell Carcinoma of Left Nasal Bridge Query of margins of excised lesion and area (sq cm) of split thickness skin graft [ ] [ ] To be completed by Physician: TRUE BROWNE The documentation in this patients record requires clarification to ensure coding compliance and accuracy. Check the appropriate box and include in your discharge summary. [ ] [ ] [ ] [ ] Please check this box if this does not apply to this patient [ ] Unable to determine [ ] Other diagnosis: Review the following information and exercise your independent professional judgment in responding to the clarification. Based upon the clinical findings, risk factors, and treatment, please clarify if you are treating one of the above probable or suspected diagnoses. Physician Signature: Date Time MTDD
== END 2019-02-14 18:18 | disposition home or self-care (01) ==
LOC: SDC 10:48
PROVIDERS: ATTEND Specialist
DX: C44.311 Basal cell carcinoma of skin of nose (principal); E78.5 Hyperlipidemia, unspecified; I10 Essential (primary) hypertension; M19.90 Unspecified osteoarthritis, unspecified site; G89.29 Other chronic pain; M25.511 Pain in right shoulder; M48.061 Spinal stenosis, lumbar region without neurogenic claudication; E78.00 Pure hypercholesterolemia, unspecified; Z86.73 Personal history of transient ischemic attack (TIA), and cerebral infarction without residual deficits; Z79.82 Long term (current) use of aspirin; Z79.899 Other long term (current) drug therapy; Z95.0 Presence of cardiac pacemaker
CPT/HCPCS: 36415; 80048; 85014; 85018; 88305; J2001; J2405; J2704; J3010; J3490; S0028